=== PATIENT | female | born 1980 ===

== ENCOUNTER 2017-11-11 10:05 | Emergency (ER) | payer OTHER ==
[~2017-11-11] VITALS: Ht 157.5 cm; Wt 56.7 kg
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
[2017-11-11] MEDS ORDERED: IBUPROFEN600 MG ORAL (12:02)
[2017-11-11] MEDS ORDERED: ROBAXIN500 MG PO (12:02)
[2017-11-11 12:15] VITALS: BP 135/70
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
== END 2017-11-11 12:15 | disposition home or self-care (01) ==
LOC: EDBD 10:05 → EMR 12:00
DX: S60.221A Contusion of right hand, initial encounter (principal); V43.52XA Car driver injured in collision with other type car in traffic accident, initial encounter; Y92.410 Unspecified street and highway as the place of occurrence of the external cause; M85.641 Other cyst of bone, right hand; Z88.0 Allergy status to penicillin
CPT/HCPCS: 99283